=== PATIENT | male | born 2000 | race Hispanic/Latino ===

== ENCOUNTER 2019-06-24 23:36 | Emergency (ER) | payer OTHER, SELFPAY ==
--- NOTE | ~2019-06-24 | XR_ITS ---
XR finger 1st LT min 2V DATE: 06/25/2019 00:38 INDICATION: Slammed fourth digit in car door. Laceration, pain. TECHNIQUE: 3 views COMPARISON: None FINDINGS: No radiopaque soft tissue foreign body or subcutaneous emphysema. No fracture, dislocation, periosteal reaction or bone destruction. IMPRESSION: Negative Reviewed, dictated and finalized at location A. [employer] IMPRESSION: Negative
[2019-06-24 23:42] VITALS: BP 155/80; PULSE 70; RESP 18; TEMP 36.6; O2SAT 97
--- NOTE | 2019-06-24 23:54 | ED.UPPEXIN ---
HPI - Extremity Injury (Upper) General Chief Complaint: Extremity Injury, Upper Stated Complaint: L THUMB PAIN Time Seen by Provider: 06/24/19 23:52 Source: patient and RN notes reviewed Mode of arrival: ambulatory Limitations: no limitations History of Present Illness HPI narrative: Pt is a 19 y/o male who presents to the ED with c/o an injury to his lt thumb. Pt reports that he had closed a car door on his lt thumb about an hour ago which resulted in a laceration, but he is able to bend the thumb up and down. Pt denies numbness/tingling or fever. He notes that since the incident he has taken an anti-inflammatory and he received his last Tetanus shot recently in May. complaint: injury to: left (Thumb) Other injuries: none Context: other (Shut in car door) Associated symptoms: other (Laceration to lt thumb) Treatments prior to arrival: other (Anti-inflammatory) Review of Systems Review of Systems: All systems reviewed & are unremarkable except as noted in HPI and below Constitutional: Constitutional: Denies fever(s) Integumentary/Breasts: Skin/Breast: Reports other (lt thumb laceration from car door) Neurologic: Denies numbness and Denies tingling PMFSH Past Medical History Medical History (Updated 06/25/19 @ 01:28 by Tod Quintero DO) No significant past medical history Surgical History Surgical History (Updated 06/25/19 @ 00:12 by Patricia Sánchez) No significant past surgical history Social History Social History (Updated 06/25/19 @ 00:12 by Patricia Sánchez) Smoking status: Unknown if ever smoked Exam Narrative: Exam Narrative: APPEARANCE: No acute distress, nontoxic, resting in bed Eyes: EOMI HEENT: Normocephalic, atraumatic, RESPIRATORY: No respiratory distress MUSCULOSKELETAl: Tender to palpation over the first digit on the left thumb at the base of the nail, there is a mild abrasion with mild venous bleeding full flexion extension of the IP joint MCP joint, small amount of ecchymosis at the base of the nail but no diffuse area of ecchymosis cap refill less than 3 seconds NEURO: Awake and alert. Following commands, speech normal, no focal deficits SKIN:: Warm, dry. Normal Color no rash or lesions Course Course Emergency Course: Patient did have a small area of a continued superficial venous bleed that was treated with silver nitrate with good relief Discussed with patient results of workup and diagnosis. Discussed need for follow-up with primary care, proper use of medication, and reasons to return to the emergency department. Patient understands and agrees to current treatment plan Vital Signs Vital signs: Vital Signs Temperature 97.9 F 06/24/19 23:42 Pulse Rate 70 06/24/19 23:42 Respiratory Rate 18 06/24/19 23:42 Blood Pressure 155/80 H 06/24/19 23:42 Pulse Oximetry 97 06/24/19 23:42 Temperature 97.9 F 06/24/19 23:42 Pulse Rate 70 06/24/19 23:42 Respiratory Rate 18 06/24/19 23:42 Blood Pressure 155/80 H 06/24/19 23:42 Pulse Oximetry 97 06/24/19 23:42 MDM - Extremity Injury (Upper) Imaging Data My impression: lt Thumb X-Ray ED Physician IMPRESSION: No fracture. Discharge Plan Discharge Clinical Impression: Contusion of left thumb, Abrasion of left thumb Patient Disposition: Home, Self-Care Condition: Stable Instructions: Antibiotic Form, Crush Injury (ED) Additional Instructions: Return for increasing pain, bleeding from the wound, signs infection or any other symptoms of concern Prescriptions: New ibuprofen [IBU] 600 mg tablet 600 mg PO Q6H PRN (Reason: pain) Qty: 20 RF: 0 Follow-up/Referrals: Danny Plascencia MD [Physician] - (Follow-up in 1-2 days for further on-call physician treatment and evaluation) UNKNOWN,DOCTOR [Primary Care Provider] - Time of Disposition: 01:28
[2019-06-25 01:38] VITALS: BP 129/78; PULSE 69; RESP 15; TEMP 36.7; O2SAT 100
--- NOTE | 2019-07-03 06:23 | PC.NURSE ---
LATE ENTRY This note is being entered to document information to the patient's record. The following information was omitted on 06/25/19VORB by Ingrid ALMODOVAR Finger Splint.
== END 2019-06-25 01:40 | disposition home or self-care (01) ==
PROVIDERS: Emergency Provider Emergency Medicine
DX: S60.012A Contusion of left thumb without damage to nail, initial encounter (principal); S60.312A Abrasion of left thumb, initial encounter; W23.0XXA Caught, crushed, jammed, or pinched between moving objects, initial encounter
CPT/HCPCS: 12001; 29130; 73140; 99283

== ENCOUNTER 2022-03-20 17:38 | Emergency (ER) | payer SELFPAY ==
[2022-03-20 17:41] VITALS: BP 149/84; PULSE 81; RESP 14; TEMP 36.6; O2SAT 100
--- NOTE | 2022-03-20 18:09 | ED.SKABFB ---
HPI - Skin/Abscess/Foreign Bdy General Chief complaint: Skin/Abscess/Foreign Body Stated complaint: pimples on inner lips Time Seen by Provider: 03/20/22 17:47 History of Present Illness HPI narrative: 21-year-old male here for evaluation of a several painless lesions to his bottom inner lip. He states that the lesions came on several days ago without obvious trigger. No new medications, soaps or detergents. The lesions have not drained, are not painful, itchy or spreading. No involvement of the conjunctivae. Review of Systems Review of Systems: Gen.: Denies fevers or chills Eyes: Denies eye pain or visual change ENT: Denies congestion Respiratory: Denies shortness of breath or cough CV: Denies chest pain or palpitations GI: Denies abdominal pain nausea, emesis or diarrhea denies burning, urgency, frequency or hematuria Musculoskeletal: Denies back pain or muscle pain Neuro: Denies numbness, tingling, weakness or focal weakness Skin: Reports lesion to left Except as documented, all other systems reviewed and negative [facility] Past Medical History Medical History No significant past medical history Surgical History Surgical History No significant past surgical history Social History Social History (Updated 06/25/19 @ 00:12 by Patricia Sánchez) Smoking status: Unknown if ever smoked Exam Narrative: Gen: Alert, oriented, no acute distress Eyes: EOMI, no icterus Pulm: Respirations even and unlabored, symmetric thorax expansion, no audible stridor or visible cyanosis CV: Regular rate per telemetry GI: No distension, no voluntary/involuntary guarding Neuro: AOx4, moves all extremities without apparent difficulty or weakness, follows commands Skin: Patient has 3-4 pinpoint papules to the right vermilion border of his lower lip, no fluid expressed with palpation, no surrounding swelling or erythema. No lesions to remainder of oral mucosa or to exposed skin to trunk, arms and legs Psych: Normal mood/affect, insight/judgement good, adequate fund of knowledge, recent/remote memory intact Course Vital Signs Vital signs: Vital Signs Temperature 97.9 F 09/10/22 17:41 Pulse Rate 81 03/20/22 17:41 Respiratory Rate 14 03/20/22 17:41 Blood Pressure 149/84 H 03/20/22 17:41 Pulse Oximetry 100 03/20/22 17:41 Temperature 97.9 F 03/20/22 17:41 Pulse Rate 81 03/20/22 17:41 Respiratory Rate 14 03/20/22 17:41 Blood Pressure 149/84 H 03/20/22 17:41 Pulse Oximetry 100 03/20/22 17:41 MDM - Skin/Abscess/Foreign Bdy MDM Narrative Medical decision making narrative: 21-year-old male here for evaluation of several painless pinpoint papules to the right vermilion border of his lower lip that came on without an obvious trigger several days ago. The lesions do not appear consistent with an infectious ulceration or vesicle such as HSV, coxsackievirus, HIV. Do not appear consistent with stomatitis. he is not having any systemic symptoms or new medications to suggest SJS or TENS. Unclear etiology of lesions, but lack of discomfort is reassuring. He was given return precautions and he voiced understanding. Discharge Plan Discharge Clinical Impression: Lesion of lip Patient Disposition: Home, Self-Care Condition: Stable Instructions: Antibiotic Form Additional Instructions: The lesions on your lips do not appear infectious and will likely clear up on their own. Please seek medical evaluation if the lesions become painful, itchy, began to drain fluid, you develop lesions in your eyes. Prescriptions: No Action ibuprofen [IBU] 600 mg tablet 600 mg PO Q6H PRN (Reason: pain) Qty: 20 0RF Follow-up/Referrals: UNKNOWN,DOCTOR [Primary Care Provider] -
== END 2022-03-20 18:38 | disposition home or self-care (01) ==
PROVIDERS: Emergency Provider Emergency Medicine
DX: K13.0 Diseases of lips (principal)
CPT/HCPCS: 99281